=== PATIENT | female | born 1965 | race Asian ===

== ENCOUNTER 2017-03-08 23:29 | Observation (INO) | payer OTHER ==
[~2017-03-08] VITALS: Ht 165.1 cm; Wt 93.7 kg
[~2017-03-08 23:29] MED LIST: BENTYL20 MG PO; DIABETES MED; LEVAQUIN500 MG PO; LISINOPRIL2.5 MG PO; LOMOTIL TABLET1 EACH PO; PROMETHAZINE HC25 M1 PO
[2017-03-09 00:06] LABS: HEMATOCRIT 41.1 % (36.0-46.0); MCH 27.9 PG (29.0-34.0); MCHC 33.6 G/DL (30.0-36.0); MEAN PLAT.VOLUME 9.6 uM^3 (9.5-12.4); PLATELET COUNT 269 K/uL (156-360); RBC DIS.WIDTH-CV 12.3 % (11.8-14.6); RBC DIS.WIDTH-SD 37.2 % (39-53); RED BLOOD COUNT 4.95 M/uL (3.80-5.20)
[2017-03-09] MEDS ORDERED: HYZAAR 100-21 TABLET PO (00:23)
[2017-03-09] MEDS ORDERED: GLUCOPHAGE1000 MG PO (00:23)
[2017-03-09] MEDS ORDERED: NORVASC10 MG PO (00:23)
[2017-03-09] MEDS ORDERED: MOTRIN IB200 MG PO (00:24)
[2017-03-09] MEDS ORDERED: LANTUS 10100 UNITS/ SC (00:24)
[2017-03-09 00:31] LABS: CHLORIDE 104 mEq/L (99-109); POTASSIUM 3.2 mEq/L (3.7-5.4); SODIUM 140 mEq/L (136-147)
[2017-03-09 00:32] LABS: MAGNESIUM 2.1 mg/dL (1.3-2.7)
[2017-03-09 00:33] LABS: GLUCOSE 226 mg/dL (70-99)
[2017-03-09 00:34] LABS: ANION GAP 11 MEQ/L (2-14)
[2017-03-09 00:35] LABS: TOTAL BILIRUBIN 0.4 mg/dL (0.0-1.0)
[2017-03-09 00:37] LABS: ALKALINE PHOSPHATASE 70 IU/L (3-129); GFR ESTIMATE (CALCULATED) > 59 mL/min/
[2017-03-09 00:38] LABS: UREA NITROGEN (BUN) 21 mg/dL (9-23)
[2017-03-09 00:40] LABS: CREATINE KINASE 64 IU/L (1-294); LIPASE 39 U/L (1.0-51.0); TOTAL CK 64 IU/L (1-294)
[2017-03-09 00:47] LABS: CK-MB 0.7 ng/mL (0.0-4.9)
[2017-03-09 01:24] LABS: D-DIMER ELISA 0.57 mg/L FEU (< 0.57)
[2017-03-09 01:41] LABS: ADD MIUA? NO; BILIRUBIN NEGATIVE; BLOOD NEGATIVE; COLOR STRAW ((YELLOW)); GLUCOSE (STRIP) >=500; KETONES 5; LEUKOCYTES NEGATIVE; NITRITE NEGATIVE; PROTEIN (STRIP) NEGATIVE; SPECIFIC GRAVITY 1.022 (1.000-1.030); UCUL ADDED? NO; UROBILINOGEN 0.2 MG/DL (0.2-1.0)
[2017-03-09 04:48] LABS: POINT-OF-CARE METER ID UU13113702
[2017-03-09 05:32] VITALS: BP 136/66
[2017-03-09 08:00] VITALS: BP 139/74
[2017-03-09 08:57] LABS: POINT-OF-CARE METER ID UU14162513
[2017-03-09 10:02] LABS: ADD MIUA? NO; BILIRUBIN NEGATIVE; BLOOD NEGATIVE; COLOR STRAW ((YELLOW)); GLUCOSE (STRIP) >=500; KETONES NEGATIVE; LEUKOCYTES NEGATIVE; NITRITE NEGATIVE; PROTEIN (STRIP) NEGATIVE; SPECIFIC GRAVITY 1.027 (1.000-1.030); UROBILINOGEN 0.2 MG/DL (0.2-1.0)
[2017-03-09 11:38] VITALS: BP 116/61
[2017-03-09 12:47] LABS: POINT-OF-CARE METER ID UU13113700
[2017-03-09 13:12] LABS: AMPHETAMINES QUANT VALUE 0 NG/ML; BARBITUATES QUANT VALUE 0 NG/ML; BENZODIAZEPINES QUANT VALUE 0 NG/ML; BENZODIAZEPINES, URINE SCREEN Negative (200 ng/mL); MARIJUANA QUANT VALUE 0 NG/ML; OPIATES QUANTITATIVE VALUE 0 NG/ML; PHENCYCLIDINE QUANT VALUE 0 NG/ML
[2017-03-09] MEDS ORDERED: GLIPIZIDE5 MG PO (14:23)
[2017-03-10 08:39] LABS: Estimated Average Glucose 220 mg/dL (70-123); HEMOGLOBIN A1c (GLYCOHEMOGLOB) 9.3 % HGB (Below 5.7)
== END 2017-03-09 15:25 | disposition home or self-care (01) ==
LOC: EME 23:29 → EDOF 03-09 04:00 → 5WEST 03-09 05:21
PROVIDERS: Emergency Medicine; Hospitalist; Student in an Organized Health Care Education/Training Program
DX: E87.2 Acidosis (principal); E11.65 Type 2 diabetes mellitus with hyperglycemia; E86.0 Dehydration; I10 Essential (primary) hypertension; Z87.891 Personal history of nicotine dependence; R25.2 Cramp and spasm; E87.6 Hypokalemia
CPT/HCPCS: 71020; 71275; 80053; 80306 90; 81003; 82550; 82553; 82948; 83036; 83605; 83690; 83735; 84443; 85027; 85379; 87040; 93005; 93970; 99281; 99285; G0378; J1650; J1815; J3475; J7030